=== PATIENT | female | born 1970 | race Hispanic/Latino ===

== ENCOUNTER 2023-01-13 06:52 | Emergency (ER) | payer SELFPAY ==
[2023-01-13 07:45] LABS: Specific Gravity 1.017 (1.005-1.030); Urine Bacteria 20-50 /HPF (<20); Urine Bilirubin NEGATIVE (Negative); Urine Blood Trace (Negative); Urine Clarity Clear (Clear); Urine Color Light-Yellow (Yellow); Urine Glucose NEGATIVE (Negative); Urine Mucus Slight /HPF (None Seen); Urine Protein NEGATIVE (Negative); Urine RBC <5 /HPF (None Seen); Urine Urobilinogen Normal (Normal)
[2023-01-13 07:48] LABS: Absolute Lymphocytes (CBC) 1.7 K/uL (0.7-4.9); Hematocrit 42.8 % (36.0-45.0); Lymphocytes % 28.5 % (15.3-44.8); MCV 86.6 fL (80-100); MPV 8.1 fL (7.6-11.3); RBC Red Blood Cell Count 4.94 M/uL (3.86-4.86)
[2023-01-13 08:15] LABS: Albumin 3.7 g/dL (3.4-5.0); Bilirubin Total 0.5 mg/dL (0.2-1.0); Potassium 3.5 mEq/L (3.5-5.1); Protein, Total 8.2 g/dL (6.4-8.2)
--- NOTE | 2023-01-13 09:04 | RAD REPORT ---
EXAM DESCRIPTION: CTAbdomen Pelvis W Contrast - 01/13/2023 8:31 am CLINICAL HISTORY: Abdominal pain. ABD PAIN COMPARISON: No comparisons TECHNIQUE: Biphasic CT imaging of the abdomen and pelvis was performed with 100 ml non-ionic IV cont rast. All CT scans are performed using dose optimization technique as appropriate and may include automated exposure control or mA/KV adjustment according to patient size. FINDINGS: The lung bases are clear.Cholecystectomy. The liver shows mild fatty infiltration. Spleen, pancreas, adrenal glands and kidneys are within norm al limits. No bowel obstruction, free air, free fluid or abscess. Scattered colonic diverticulosis is present wi th moderate stool. The appendix is normal. There is a ventral hernia at the level of the umbilicus wh ich is moderate in size and contains fat. Fascia defect is 2 cm. No evidence of significant lymphaden opathy. No suspicious bony findings. IMPRESSION: Fatty liver. Moderate fat containing periumbilical ventral hernia. No incarceration or bowel involvement.
--- NOTE | 2023-01-13 09:50 | EDPHYS ---
Physician Documentation [facility] Name: Radha Toledo Age: 52 yrs Sex: Female : 1970 Arrival Date: 01/13/2023 Time: 06:52 Bed 12 Private MD: ED Physician Gordon Douglas HPI: 01/13 10:54 This 52 yrs old Female presents to ER via Ambulatory with complaints of ms3 Urinary Problem, Pelvic Pain, Fever. 10:54 52-year-old female with past medical history of uterine cancer presents for 1 week of ms3 lower abdominal pain. Patient denies vaginal discharge. Patient states the discomfort is 4/10. Patient states the pain is better with taking Tylenol. Patient denies aggravating factors. Patient endorses fever up to 102, chills. Patient denies nausea or vomiting.. Historical: - Allergies: 07:11 Lidocaine; aa5 07:11 PENICILLINS; aa5 07:11 Aspirin; aa5 - PMHx: 07:12 Uterine Cancer; aa5 - PSHx: 07:12 Total Hysterectomy (uterine cancer); aa5 - Immunization history:: Adult Immunizations unknown. - Social history:: Smoking status: Patient denies any tobacco usage or history of. ROS: 10:54 Respiratory: Negative for shortness of breath, cough, wheezing, and pleuritic chest ms3 pain. 10:54 MS/Extremity: Negative for injury and deformity, Skin: Negative for injury, rash, and discoloration. 10:54 Constitutional: Positive for chills, fever. 10:54 Abdomen/GI: Positive for abdominal pain. 10:54 All other systems are negative. Exam: 10:54 Constitutional: This is a well developed, well nourished patient who is awake, alert, ms3 and in no acute distress. Head/Face: Normocephalic, atraumatic. Eyes: Pupils equal round and reactive to light, extra-ocular motions intact. Lids and lashes normal. Conjunctiva and sclera are non-icteric and not injected. Periorbital areas with no swelling, redness, or edema. Neck: Trachea midline, no cervical lymphadenopathy. Supple, full range of motion without nuchal rigidity, or vertebral point tenderness. No Meningismus. Chest/axilla: Normal chest wall appearance and motion. Nontender with no deformity. Cardiovascular: Regular rate and rhythm with a normal S1 and S2. No gallops, murmurs, or rubs. Normal PMI, no JVD. No pulse deficits. Respiratory: Lungs have equal breath sounds bilaterally, clear to auscultation and percussion. No rales, rhonchi or wheezes noted. No increased work of breathing, no retractions or nasal flaring. 10:54 Abdomen/GI: Inspection: abdomen appears normal, Bowel sounds: normal, Palpation: moderate abdominal tenderness, in the suprapubic area. Vital Signs: 07:12 BP 141 / 94; Pulse 82; Resp 16 S; Temp 97.5(TE); Pulse Ox 100% on R/A; Weight 86.18 kg aa5 (R); Height 5 ft. 3 in. (R); Pain 10; 07:12 Body Mass Index 33.66 (86.18 kg, 160.02 cm) aa5 07:12 Pain Scale: Adult aa5 MDM: 07:15 Patient medically screened. ms3 10:54 Differential diagnosis: UTI, Metastasis versus Pyelonephritis. ms3 12:07 Data reviewed: vital signs, nurses notes, lab test result(s), radiologic studies, and ms3 as a result, I will discharge patient. I considered the following discharge prescriptions or medication management in the emergency department I discussed and recommended Over The Counter medications. Care significantly affected by the following chronic conditions: Cancer. Care significantly affected by the following Social Determinants of Health:. Counseling: I had a detailed discussion with the patient and/or guardian regarding: the historical points, exam findings, and any diagnostic results supporting the discharge/admit diagnosis, lab results, radiology results, the need for outpatient follow up, to return to the emergency department if symptoms worsen or persist or if there are any questions or concerns that arise at home. Response to treatment: the patient's symptoms have markedly improved after treatment, and as a result, I will discharge patient. Special discussion: I discussed with the patient/guardian in detail that at this point there is no indication for admission to the hospital. It is understood, however, that if the symptoms persist or worsen the patient needs to return immediately for re-evaluation. 01/13 07:15 Order name: CBC with Diff; Complete Time: 08:18 ms3 01/13 07:15 Order name: CMP; Complete Time: 08:18 ms3 01/13 07:15 Order name: Urinalysis w/ reflexes; Complete Time: 07:49 ms3 01/13 07:50 Order name: CT Abd/Pelvis - IV Contrast Only; Complete Time: 09:39 ms3 01/13 07:50 Order name: IV Saline Lock; Complete Time: 08:14 ms3 01/13 07:50 Order name: Labs collected and sent; Complete Time: 08:14 ms3 Administered Medications: No medications were administered Disposition Summary: 01/13/23 09:50 Discharge Ordered Location: Home ms3 Condition: Stable ms3 Diagnosis - Lower abdominal pain, unspecified ms3 - UTI/ Urinary tract infection, site not specified ms3 Followup: ms3 - With: Private Physician - When: 2 - 3 days - Reason: Recheck today's complaints Discharge Instructions: - Discharge Summary Sheet ms3 - Abdominal Pain, Adult ms3 Forms: - Work release form iw - Medication Reconciliation Form ms3 - Thank You Letter ms3 - Antibiotic Education ms3 - Prescription Opioid Use ms3 Prescriptions: - Macrobid 100 mg Oral Capsule - take 1 capsule by ORAL route every 12 hours for 10 days; 20 capsule; Refills: ms3 0, Product Selection Permitted Signatures: Dispatcher [employer] Meche Ku RN RN aa5 Gordon Douglas DO DO ms3
--- NOTE | 2023-01-13 09:50 | ER ---
Nurse's Notes [facility] [place], [place] Name: Radha Toledo Age: 52 yrs Sex: Female : 1970 Arrival Date: 01/13/2023 Time: 06:52 Bed 12 Private MD: Diagnosis: Lower abdominal pain, unspecified;UTI/ Urinary tract infection, site not specified Presentation: 01/13 07:12 Coronavirus screen: fever. Ebola Screen: Patient denies travel to an Ebola-affected [facility] area in the 21 days before illness onset. Initial Sepsis Screen: Does the patient meet any 2 criteria? Temp <36.0*C (96.8*F)) or > 38.3*C (100.9*F). Does the patient have a suspected source of infection? No. Patient's initial sepsis screen is negative. Risk Assessment: Do you want to hurt yourself or someone else? Patient reports no desire to harm self or others. Onset of symptoms was January 2023. 07:12 Acuity: ADRIÁN 3 aa5 07:12 Method Of Arrival: Ambulatory aa5 07:12 Chief complaint: Patient states: lower abd/pelvic pain, burning with urination, and aa5 fever up to 102.0*F. Triage Assessment: 10:09 General: Appears in no apparent distress. iw Historical: - Allergies: 07:11 Lidocaine; aa5 07:11 PENICILLINS; aa5 07:11 Aspirin; aa5 - PMHx: 07:12 Uterine Cancer; aa5 - PSHx: 07:12 Total Hysterectomy (uterine cancer); aa5 - Immunization history:: Adult Immunizations unknown. - Social history:: Smoking status: Patient denies any tobacco usage or history of. Screenin:08 [facility] ED Fall Risk Assessment (Adult) History of falling in the last 3 months, iw including since admission. Abuse screen: Denies threats or abuse. Denies injuries from another. Nutritional screening: No deficits noted. Tuberculosis screening: No symptoms or risk factors identified. Assessment: 07:28 Reassessment: Patient is alert, oriented x 3, equal unlabored respirations, skin aa5 warm/dry/pink. Pt sitting up in bed, notified of wait time for lab results. . Vital Signs: 07:12 BP 141 / 94; Pulse 82; Resp 16 S; Temp 97.5(TE); Pulse Ox 100% on R/A; Weight 86.18 kg aa5 (R); Height 5 ft. 3 in. (R); Pain 4/10; 07:12 Body Mass Index 33.66 (86.18 kg, 160.02 cm) aa5 07:12 Pain Scale: Adult aa5 ED Course: 06:55 Patient arrived in ED. rg4 07:02 Gordon Douglas DO is Attending Physician. ms3 07:11 Arm band placed on. aa5 07:12 Triage completed. aa5 07:28 Initial lab(s) drawn, by me, sent to lab. Inserted saline lock: 20 gauge in right aa5 antecubital area, using aseptic technique. Blood collected. 08:33 CT Abd/Pelvis - IV Contrast Only In Process Unspecified. EDMS 09:53 Filomena Harris, RN is Primary Nurse. iw 10:09 Patient has correct armband on for positive identification. iw 10:09 IV discontinued, intact, bleeding controlled, No redness/swelling at site. Pressure iw dressing applied. 10:09 No provider procedures requiring assistance completed. iw Administered Medications: No medications were administered Medication: 10:08 VIS not applicable for this client. iw Outcome: 09:50 Discharge ordered by MD. ms3 10:08 Discharged to home ambulatory. iw 10:08 Condition: good 10:08 Discharge instructions given to patient, Instructed on discharge instructions, follow up and referral plans. Demonstrated understanding of instructions, follow-up care, medications, Prescriptions given X 1. 10:09 Patient left the ED. iw Signatures: Dispatcher [employer] EDMT Filomena Harris RN RN iw Meche Cuevas RN RN aa5 Garcia, Rubi rg4 Gordon Douglas DO DO ms3 Corrections: (The following items were deleted from the chart) 07:14 07:12 Pulse 82bpm; Resp 16bpm; Spontaneous; Pulse Ox 100% RA; Temp 97.5F Temporal; Pain aa5 410, Adult; aa5 07:15 07:12 Pulse 82bpm; Resp 16bpm; Spontaneous; Pulse Ox 100% RA; Temp 97.5F Temporal; aa5 86.18 kg Reported; Height 5 ft. 3 in. Reported; BMI: 33.6; Pain 4/10, Adult; aa5
[2023-01-13 10:29] VITALS: BP 141/94; TEMP 97.5; O2SAT 100
== END 2023-01-13 10:09 | disposition home or self-care (01) ==
LOC: ER 06:52
DX: N39.0 Urinary tract infection, site not specified (principal)
CPT/HCPCS: 36415; 74177; 80053; 81001; 85025; 99284; Q9967

== ENCOUNTER 2023-05-08 20:08 | Emergency (ER) | payer SELFPAY ==
--- NOTE | 2023-05-08 21:58 | RAD REPORT ---
EXAM DESCRIPTION: RAD - Chest Single View - 05/08/2023 9:46 pm CLINICAL HISTORY: COUGH Chest pain. COMPARISON: No comparisons FINDINGS: Portable technique limits examination quality. The lungs are grossly clear. The heart is normal in size. No displaced fractures. IMPRESSION: No acute intrathoracic process suspected.
[2023-05-08 22:02] LABS: Specific Gravity 1.023 (1.005-1.030); Urine Bacteria None Seen /HPF (<20); Urine Bilirubin NEGATIVE (Negative); Urine Blood Negative (Negative); Urine Clarity Extremely Turbid (Clear); Urine Color Light-Yellow (Yellow); Urine Glucose NEGATIVE (Negative); Urine Mucus Slight /HPF (None Seen); Urine Protein NEGATIVE (Negative); Urine Urobilinogen Normal (Normal); Urine pH 6.5 (5.0-7.0)
[2023-05-08 22:07] LABS: Absolute Lymphocytes (CBC) 2.7 K/uL (0.7-4.9); Hematocrit 42.2 % (36.0-45.0); MCV 86.6 fL (80-100); MPV 7.7 fL (7.6-11.3); Platelets 281 thou/uL (152-406); RBC Red Blood Cell Count 4.87 M/uL (3.86-4.86)
[2023-05-08 22:12] LABS: Protime INR 1.03
[2023-05-08] MEDS ORDERED: NA CHLORIDE 0.9% 1,000 ML ONE (22:14)
[2023-05-08] MEDS ORDERED: NA CHLORIDE 0.9% 500 ML ONE (22:14)
[2023-05-08 22:19] LABS: SARS-CoV-2 Antigen Rapid Res Negative (Negative)
[2023-05-08 22:26] LABS: ALT/SGPT 44 U/L (13-56); AST/SGOT 27 U/L (15-37); Albumin 3.7 g/dL (3.4-5.0); Alkaline Phosphatase 118 U/L (45-117); BUN Blood Urea Nitrogen 13 mg/dL (7-18); Bicarbonate 32 mEq/L (21-32); Bilirubin Total 0.2 mg/dL (0.2-1.0); Glomerular Filtration Rate 77 ml/min (=/>90); Glucose Level 87 mg/dL (74-106); Magnesium 2.1 mg/dL (1.6-2.4); NT PRO-BNP 33 pg/mL (<125); Potassium 3.5 mEq/L (3.5-5.1); Protein, Total 7.8 g/dL (6.4-8.2); Sodium Level 139 mEq/L (136-145); Troponin High Sensitivity 4.9 pg/mL (<58.9)
[2023-05-08 22:28] LABS: Bilirubin Direct < 0.1 mg/dL (0-0.2); Bilirubin Indirect, Calculated ND mg/dL (0.2-0.8)
--- NOTE | 2023-05-08 23:53 | ER ---
Nurse's Notes [facility] Name: Radha Toledo Age: 52 yrs Sex: Female : 1970 Arrival Date: 05/08/2023 Time: 20:08 Bed 18 Private MD: Diagnosis: Acute upper respiratory infection, unspecified;Fever, unspecified;Cough Presentation: 05/08 20:53 Chief complaint: Patient states: I have been having shortness of breath when I take a vc1 deep breath I have pain in my back and my nose is stuffed, it has been like this for 3 days. Coronavirus screen: Vaccine status: Patient reports receiving the 2nd dose of the covid vaccine. plus booster; [place] Client denies travel out of the [place] in the last 14 days. congestion, cough unrelated to allergies, runny nose, shortness of breath, Client presents with at least one sign or symptom that may indicate coronavirus-19. Ebola Screen: Patient negative for fever greater than or equal to 101.5 degrees Fahrenheit, and additional compatible Ebola Virus Disease symptoms Patient denies exposure to infectious person. Patient denies travel to an Ebola-affected area in the 21 days before illness onset. No symptoms or risks identified at this time. Initial Sepsis Screen: Does the patient meet any 2 criteria? No. Patient's initial sepsis screen is negative. Does the patient have a suspected source of infection? No. Patient's initial sepsis screen is negative. Risk Assessment: Do you want to hurt yourself or someone else? Patient reports no desire to harm self or others. Onset of symptoms was May 05, 2023. 20:53 Method Of Arrival: Ambulatory vc1 20:53 Acuity: ADRIÁN 3 vc1 Triage Assessment: 20:57 General: Appears in no apparent distress. uncomfortable, ill, Behavior is calm, vc1 cooperative, appropriate for age. Pain: Complains of pain in right trapezius and right scapular area Pain does not radiate. Pain currently is 4 out of 10 on a pain scale. Aggravated by deep breath. EENT: Reports nasal congestion. Neuro: No deficits noted. Cardiovascular: No deficits noted. Respiratory: Reports shortness of breath Airway is patent Respiratory effort is even, unlabored, Respiratory pattern is regular, symmetrical, Onset: The symptoms/episode began/occurred 3 days, the patient has mild shortness of breath. GI: No deficits noted. No signs and/or symptoms were reported involving the gastrointestinal system. : No deficits noted. No signs and/or symptoms were reported regarding the genitourinary system. Derm: No deficits noted. No signs and/or symptoms reported regarding the dermatologic system. Musculoskeletal: No deficits noted. No signs and/or symptoms reported regarding the musculoskeletal system. 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 - Social history:: Smoking status: Patient denies any tobacco usage or history of. - Family history:: not pertinent. Screenin:10 [facility] ED Fall Risk Assessment (Adult) History of falling in the last 3 months, lg3 including since admission No falls in past 3 months (0 pts). Abuse screen: Denies threats or abuse. Denies injuries from another. Nutritional screening: No deficits noted. Tuberculosis screening: No symptoms or risk factors identified. Assessment: 21:10 General: Appears in no apparent distress. comfortable, Behavior is calm, cooperative. lg3 Pain: Complains of pain in back. Neuro: No deficits noted. Webber Agitation-Sedation Scale (RASS): 0 - Alert and Calm Level of Consciousness is awake, alert, obeys commands, Oriented to person, place, time, situation, Reports headache weakness. Cardiovascular: No deficits noted. Denies chest pain, Rhythm is sinus rhythm. Respiratory: Reports shortness of breath cough that is pain with cough Airway is patent Respiratory effort is even, unlabored, Respiratory pattern is regular, symmetrical, Breath sounds are clear bilaterally. GI: No deficits noted. No signs and/or symptoms were reported involving the gastrointestinal system. Abdomen is round non-distended. : No deficits noted. No signs and/or symptoms were reported regarding the genitourinary system. EENT: No deficits noted. Reports nasal congestion nasal discharge. Derm: No deficits noted. No signs and/or symptoms reported regarding the dermatologic system. Skin is intact, is healthy with good turgor, Skin is dry, Skin is normal, Skin temperature is warm. Musculoskeletal: No deficits noted. Circulation, motion, and sensation intact. Range of motion: intact in all extremities. 23:42 Reassessment: Patient appears in no apparent distress at this time. No changes from lg3 previously documented assessment. Patient and/or family updated on plan of care and expected duration. Pain level reassessed. Patient is alert, oriented x 3, equal unlabored respirations, skin warm/dry/pink. Vital Signs: 20:53 BP 138 / 94; Pulse 86; Resp 18; Temp 98.1; Pulse Ox 100% ; Weight 86.18 kg; Height 5 vc1 ft. 3 in. ; 22:20 BP 130 / 85; Pulse 79; Resp 13 S; Pulse Ox 99% on R/A; lg3 23:42 BP 116 / 72; Pulse 84; Resp 15 S; Pulse Ox 99% on R/A; lg3 20:53 Body Mass Index 33.66 (86.18 kg, 160.02 cm) vc1 ED Course: 20:10 Patient arrived in ED. mr 20:56 Triage completed. vc1 20:56 Arm band placed on left wrist. vc1 21:10 Patient has correct armband on for positive identification. Placed in gown. Bed in low lg3 position. Call light in reach. Side rails up X 1. Client placed on continuous cardiac and pulse oximetry monitoring. NIBP monitoring applied. c4 planner on. Door closed. Noise minimized. Warm blanket given. 21:10 Patient maintains SpO2 saturation greater than 95% on room air. lg3 21:17 Zacarias Osborn MD is Attending Physician. carl 21:47 XRAY Chest (1 view) In Process Unspecified. EDMS 21:54 Urinalysis w/ reflexes Sent. pf1 21:54 SARS RAPID Sent. pf1 21:54 Flu Sent. pf1 22:00 Inserted saline lock: 22 gauge in right antecubital area, using aseptic technique. lg3 Blood collected. 22:16 Ayaka Ivy, RN is Primary Nurse. lg3 05/09 00:16 No provider procedures requiring assistance completed. IV discontinued, intact, lg3 bleeding controlled, No redness/swelling at site. Pressure dressing applied. Administered Medications: 05/08 22:16 Drug: NS 0.9% IV 1000 ml Route: IV; Rate: 125 ml/hr; Site: right antecubital; lg3 05/09 00:17 Follow up: IV Status: Completed infusion; IV Intake: 200ml lg3 05/08 22:17 Drug: NS 0.9% IV 500 ml Route: IV; Rate: bolus; Site: right antecubital; lg3 05/09 00:17 Follow up: Response: No adverse reaction; IV Status: Completed infusion; IV Intake: lg3 500ml 05/08 23:50 Drug: predniSONE PO 60 mg Route: PO; lg3 05/09 00:16 Follow up: Response: No adverse reaction lg3 05/08 23:50 Drug: LevOfloxacin PO 750 mg Route: PO; lg3 05/09 00:16 Follow up: Response: No adverse reaction lg3 Medication: 00:18 VIS not applicable for this client. lg3 Intake: 00:17 IV: 500ml; Total: 500ml. lg3 00:17 IV: 200ml; Total: 700ml. lg3 Outcome: 05/08 23:52 Discharge ordered by . carl 05/09 00:17 Discharged to home lg3 Condition: stable Discharge instructions given to patient, Instructed on discharge instructions, follow up and referral plans. medication usage, Demonstrated understanding of instructions, follow-up care, medications, Prescriptions given X 4. 00:18 Patient left the ED. lg3 Signatures: Dispatcher [employer] EDMS Zacarias Osborn MD MD cha Rivera, Gabrielle mr IvyAyaka RN RN lg3 Kimberlee Mitchell RN RN vc1 Niru Byrne RN RN pf1 Corrections: (The following items were deleted from the chart) 05/08 22:20 21:10 BP 130 / 85; Pulse 79bpm; Resp 13bpm; Spontaneous; Pulse Ox 99% RA; lg3 lg3
--- NOTE | 2023-05-08 23:53 | EDPHYS ---
Physician Documentation [facility] Name: Radha Toledo Age: 52 yrs Sex: Female : 1970 Arrival Date: 05/08/2023 Time: 20:08 Bed 18 Private MD: ED Physician Zacarias Osborn HPI: 05/08 23:44 This 52 yrs old Female presents to ER via Ambulatory with complaints of carl Shortness Of Breath, Cough, Congestion. 23:44 The patient has shortness of breath with light activity. Onset: The symptoms/episode carl began/occurred 2 day(s) ago. Duration: The symptoms are continuous, and are steadily getting worse. The patient's shortness of breath is aggravated by coughing, is alleviated by sitting up. Associated signs and symptoms: Pertinent positives: non-productive cough, fever. Severity of symptoms: At their worst the symptoms were mild moderate in the emergency department the symptoms are unchanged. The patient has experienced similar episodes in the past, a few times. MANAGER CODE: 20:56 LMP N/A - Hysterectomy vc1 Historical: - Allergies: 20:56 Aspirin; vc1 20:56 Lidocaine; vc1 20:56 PENICILLINS; vc1 - Home Meds: 20:56 None [Active]; vc1 - PMHx: 20:56 uterine cancer; vc1 - PSHx: 20:56 Total Hysterectomy (uterine cancer); vc1 - Immunization history:: Client reports receiving the 2nd dose of the Covid vaccine. - Social history:: Smoking status: Patient denies any tobacco usage or history of. - Family history:: not pertinent. ROS: 23:44 Constitutional: Negative for fever, chills, and weight loss, Eyes: Negative for injury, carl pain, redness, and discharge, ENT: Negative for injury, pain, and discharge, Neck: Negative for injury, pain, and swelling, Cardiovascular: Negative for chest pain, palpitations, and edema, Abdomen/GI: Negative for abdominal pain, nausea, vomiting, diarrhea, and constipation, Back: Negative for injury and pain, : Negative for injury, bleeding, discharge, and swelling, MS/Extremity: Negative for injury and deformity, Skin: Negative for injury, rash, and discoloration, Neuro: Negative for headache, weakness, numbness, tingling, and seizure, Psych: Negative for depression, anxiety, suicide ideation, homicidal ideation, and hallucinations, Allergy/Immunology: Negative for hives, rash, and allergies, Endocrine: Negative for neck swelling, polydipsia, polyuria, polyphagia, and marked weight changes, Hematologic/Lymphatic: Negative for swollen nodes, abnormal bleeding, and unusual bruising. 23:44 Respiratory: Positive for cough, "sounds productive". Exam: 23:44 Constitutional: This is a well developed, well nourished patient who is awake, alert, carl and in no acute distress. Head/Face: Normocephalic, atraumatic. Eyes: Pupils equal round and reactive to light, extra-ocular motions intact. Lids and lashes normal. Conjunctiva and sclera are non-icteric and not injected. Cornea within normal limits. Periorbital areas with no swelling, redness, or edema. Neck: Trachea midline, no thyromegaly or masses palpated, and no cervical lymphadenopathy. Supple, full range of motion without nuchal rigidity, or vertebral point tenderness. No Meningismus. Chest/axilla: Normal chest wall appearance and motion. Nontender with no deformity. No lesions are appreciated. Cardiovascular: Regular rate and rhythm with a normal S1 and S2. No gallops, murmurs, or rubs. Normal PMI, no JVD. No pulse deficits. Respiratory: Lungs have equal breath sounds bilaterally, clear to auscultation and percussion. No rales, rhonchi or wheezes noted. No increased work of breathing, no retractions or nasal flaring. Abdomen/GI: Soft, non-tender, with normal bowel sounds. No distension or tympany. No guarding or rebound. No evidence of tenderness throughout. Back: No spinal tenderness. No costovertebral tenderness. Full range of motion. Skin: Warm, dry with normal turgor. Normal color with no rashes, no lesions, and no evidence of cellulitis. MS/ Extremity: Pulses equal, no cyanosis. Neurovascular intact. Full, normal range of motion. Neuro: Awake and alert, GCS 15, oriented to person, place, time, and situation. Cranial nerves II-XII grossly intact. Motor strength 5/5 in all extremities. Sensory grossly intact. Cerebellar exam normal. Normal gait. Psych: Awake, alert, with orientation to person, place and time. Behavior, mood, and affect are within normal limits. 23:44 ENT: Nose: Nasal mucosa: normal, nasal drainage, and is seen coming from both nares, Posterior pharynx: no acute changes, Airway: normal, no evidence of obstruction, Tonsils: are normal in appearance, Uvula: normal, midline, non-edematous, no erythema, swelling, is not appreciated, erythema, is not appreciated. Vital Signs: 20:53 BP 138 / 94; Pulse 86; Resp 18; Temp 98.1; Pulse Ox 100% ; Weight 86.18 kg; Height 5 vc1 ft. 3 in. ; 22:20 BP 130 / 85; Pulse 79; Resp 13 S; Pulse Ox 99% on R/A; lg3 23:42 BP 116 / 72; Pulse 84; Resp 15 S; Pulse Ox 99% on R/A; lg3 20:53 Body Mass Index 33.66 (86.18 kg, 160.02 cm) vc1 MDM: 21:28 Patient medically screened. [facility] 23:51 Differential diagnosis: pneumonia. Antibiotic administration: The patient is discharged [facility] and will get outpatient antibiotics, Levaquin. Immunization status: Influenza vaccine: within last 5 years. Data reviewed: vital signs, nurses notes, lab test result(s), EKG, radiologic studies, plain films. Consideration of Admission/Observation Escalation of care including admission/observation considered. I considered the following discharge prescriptions or medication management in the emergency department Medications were administered in the Emergency Department. See MAR. Independent interpretation of the following test(s) in the Emergency Department EKG: See my EKG interpretation above. 05/08 21:19 Order name: Basic Metabolic Panel; Complete Time: 22:33 [facility] 05/08 21:19 Order name: CBC with Diff; Complete Time: 22:33 [facility] 05/08 21:19 Order name: LFT's; Complete Time: 22:33 [facility] 05/08 21:19 Order name: Magnesium; Complete Time: 22:33 [facility] 05/08 21:19 Order name: NT PRO-BNP; Complete Time: 22:33 [facility] 05/08 21:19 Order name: PT-INR; Complete Time: 22:33 [facility] 05/08 21:19 Order name: Troponin HS; Complete Time: 22:33 [facility] 05/08 21:19 Order name: Flu; Complete Time: 23:43 [facility] 05/08 21:19 Order name: SARS RAPID; Complete Time: 22:33 [facility] 05/08 21:20 Order name: Urinalysis w/ reflexes; Complete Time: 22:33 [facility] 05/08 21:19 Order name: XRAY Chest (1 view); Complete Time: 22:33 [facility] 05/08 21:19 Order name: EKG; Complete Time: 21:20 [facility] 05/08 21:19 Order name: Cardiac monitoring; Complete Time: 22:00 [facility] 05/08 21:19 Order name: EKG - Nurse/Tech; Complete Time: 21:54 [facility] 05/08 21:19 Order name: IV Saline Lock; Complete Time: 22:00 [facility] 05/08 21:19 Order name: Labs collected and sent; Complete Time: 22:00 [facility] 05/08 21:19 Order name: O2 Per Protocol; Complete Time: 22:00 [facility] 05/08 21:19 Order name: O2 Sat Monitoring; Complete Time: 22:01 [facility] Administered Medications: 22:16 Drug: NS 0.9% IV 1000 ml Route: IV; Rate: 125 ml/hr; Site: right antecubital; [facility] 05/09 00:17 Follow up: IV Status: Completed infusion; IV Intake: 200ml [facility] 05/08 22:17 Drug: NS 0.9% IV 500 ml Route: IV; Rate: bolus; Site: right antecubital; [facility] 05/09 00:17 Follow up: Response: No adverse reaction; IV Status: Completed infusion; IV Intake: lg3 500ml 05/08 23:50 Drug: predniSONE PO 60 mg Route: PO; 3 05/09 00:16 Follow up: Response: No adverse reaction [facility] 05/08 23:50 Drug: LevOfloxacin PO 750 mg Route: PO; 3 05/09 00:16 Follow up: Response: No adverse reaction 3 Disposition Summary: 05/08/23 23:52 Discharge Ordered Location: Home [facility] Problem: new carl Symptoms: have improved carl Condition: Stable carl Diagnosis - Acute upper respiratory infection, unspecified carl - Fever, unspecified carl - Cough carl Followup: carl - With: Private Physician - When: 2 - 3 days - Reason: Recheck today's complaints, Continuance of care, Re-evaluation by your physician Discharge Instructions: - Discharge Summary Sheet carl - Fever, Adult carl - Upper Respiratory Infection, Adult carl - Cool Mist Vaporizer carl - Upper Respiratory Infection, Adult, [id number] carl - Cough, Adult [facility] Forms: - Medication Reconciliation Form [facility] - Thank You Letter carl - Antibiotic Education carl - Prescription Opioid Use carl - Patient Portal Instructions carl - Leadership Thank You Letter carl Prescriptions: - Betzy-D 12 Hour 60-120 mg Oral Tablet Sustained Release 12 hr - take 1 tablet by ORAL route every 12 hours As needed; 20 tablet; Refills: 0, [facility] Product Selection Permitted - Tessalon Perles 100 mg Oral Capsule - take 2 capsule by ORAL route every 8 hours As needed; 40 capsule; Refills: 0, [facility] Product Selection Permitted - Medrol (Meet) 4 mg Oral Tablets, Dose Pack - take 1 tablet by ORAL route as directed - follow package instructions; 1 [facility] packet; Refills: 0, Product Selection Permitted - levofloxacin 750 mg Oral Tablet - take 1 tablet by ORAL route once daily; 6 tablet; Refills: 0, Product Selection [facility] Permitted Signatures: Dispatcher [employer] Zacarias Ramos MD MD cha Gibson, Lacie RN RN lg3 Kimberlee Mitchell RN RN vc1
[2023-05-08] MEDS ORDERED: levoFLOXacin 750 MG TAB ONE (23:58)
[2023-05-08] MEDS ORDERED: predniSONE 20 MG TAB ONE (23:58)
[2023-05-09 00:36] VITALS: TEMP 98.1
[2023-05-09 00:37] VITALS: O2SAT 99
[2023-05-09 00:39] VITALS: BP 116/72
--- NOTE | 2023-05-09 14:37 | EKG ---
Test Date: 2023-05-08 Test Time: 21:51:40 Stain Dipper: LA MEASUREMENT RESULTS: Intervals: Rate: 78 AR: 150 QRSD: 78 QT: 378 QTc: 430 Richards: P: 54 AR: 150 QRS: 57 T: 42 INTERPRETIVE STATEMENTS: Normal sinus rhythm Normal ECG No previous ECG available for comparison Electronically Signed On 05-09-23 14:36:04 CDT by Kenyon Ash
== END 2023-05-09 00:18 | disposition home or self-care (01) ==
LOC: ER 20:08
DX: J06.9 Acute upper respiratory infection, unspecified (principal); R50.9 Fever, unspecified; Z20.822 Contact with and (suspected) exposure to COVID-19
CPT/HCPCS: 36415; 71045; 80048; 80076; 81001; 83735; 83880; 84484; 85025; 85610; 87804; 87811; 93005; 96360; 96361; 99285; J7030; J7040; J7512

== ENCOUNTER → 2023-11-23 | Emergency (ER) | payer OTHER, SELFPAY ==
[~2023-11-23] MED LIST: DIPHENHYDRAMINE 50 MG/ML VIAL ONE; FAMOTIDINE 20 MG/2 ML VIAL IV ONE; METHYLPREDNISOLONE 125 MG INJ ONE
--- OUTSIDE RECORDS SUMMARY | 2023-11-23 17:17 | XMS REPORT | Continuity of Care Document ---
Author Name Unknown Address [address] [place] [address] [address] th[address] Address [address] [facility]. [address] [place] [address] Care Team Providers Care It Risk And Assurance Manager Name Role Phone [facility] Attending Clinician Unavailable Payers Payer Name Policy Type Policy Number Effective Date Expirati on Date [facility] [id number] 2023 00:00:00 Encounters Start Date/Time End Date/Time Encounter Type Admission Type Attending Clinicians Care Facility Care Department Encounter ID Source 2023-12-02 09:00:00 2023-12-02 09:00:00 Outpatient [facility] [id number] Zuleima Dumont
--- NOTE | 2023-11-23 18:45 | RAD REPORT ---
EXAM DESCRIPTION: RADChest Single View11/23/2023 5:36 pm CLINICAL HISTORY: SOB COMPARISON: Chest Single View dated 05/08/2023 TECHNIQUE: Portable AP view of the chest. FINDINGS: The lungs are clear. No pneumothorax or effusion. The cardiomediastinal contours are unre markable. IMPRESSION: No acute cardiopulmonary process.
[2023-11-23 18:51] LABS: Absolute Basophils 0.2 K/uL (0-0.5); Absolute Eosinophils 0.2 K/uL (0-0.5); Absolute Lymphocytes (CBC) 2.7 K/uL (0.7-4.9); Absolute Monocytes 0.7 K/uL (0.1-1.3); Absolute Neutrophil 7.3 K/uL (1.8-8.0); Basophils % 1.5 % (0-1.3); Eosinophils % 2.1 % (0-4.4); Hematocrit 42.8 % (36.0-45.0); Hemoglobin 14.5 g/dL (12.0-15.0); MCHC 33.8 g/dL (32.0-36.0); MCV 85.8 fL (80-100); Monocytes % 6.7 % (3.3-12.3); Neutrophils % 65.7 % (41.7-73.7); Nucleated Red Blood Cells % 0.1 % (0-0); Platelets 327 thou/uL (152-406); RBC Red Blood Cell Count 4.99 M/uL (3.86-4.86); Red Cell Distribution Width 13.1 % (12.1-15.2)
[2023-11-23 19:02] LABS: SARS-CoV-2 Antigen CONTROL BLUE LINE VIS/BG OK; SARS-CoV-2 Antigen Rapid Res Negative (Negative)
[2023-11-23 19:13] LABS: Albumin 3.7 g/dL (3.4-5.0); Albumin/Globulin Ratio 0.9 (1.1-1.8); Anion Gap 9.7 mEq/L (5.0-15.0); Bilirubin Direct 0.1 mg/dL (0-0.2); Bilirubin Indirect, Calculated 0.3 mg/dL (0.2-0.8); Bilirubin Total 0.4 mg/dL (0.2-1.0); Globulin 4.3 g/dL (2.3-3.5); Magnesium 2.1 mg/dL (1.6-2.4); Potassium 3.7 mEq/L (3.5-5.1); Troponin High Sensitivity 3.7 pg/mL (<58.9)
[2023-11-23 19:22] LABS: Monoscreen POS (NEG)
[2023-11-23 19:31] LABS: Specific Gravity 1.019 (1.005-1.030); Sqamous Epithelial <5 /HPF (None Seen); Urine Bacteria None Seen /HPF (<20); Urine Bilirubin NEGATIVE (Negative); Urine Blood Negative (Negative); Urine Clarity Turbid (Clear); Urine Color Light-Yellow (Yellow); Urine Culture Reflex Order NOT NEEDED; Urine Glucose NEGATIVE (Negative); Urine Ketones NEGATIVE (Negative); Urine Micro Reflex YN NO BILL MICROSCOPIC; Urine Mucus Slight /HPF (None Seen); Urine Nitrite NEGATIVE (Negative); Urine Protein NEGATIVE (Negative); Urine RBC <5 /HPF (None Seen); Urine Urobilinogen Normal (Normal); Urine WBC <5 /HPF (<5); Urine pH 6.5 (5.0-7.0)
--- NOTE | 2023-11-23 22:48 | RAD REPORT ---
EXAM DESCRIPTION: CT - Soft Tissue Neck W/Contr CLINICAL HISTORY: SWELLING COMPARISON: Chest For Pe Angio dated 11/23/2023 TECHNIQUE: Thin axial CT images of the neck, performed following intravenous administration of 95 m L Isovue- 370. Multiplanar reformats were generated and reviewed. All CT scans are performed using dose optimization technique as appropriate and may include automated exposure control or mA/KV adjustment according to patient size. FINDINGS: Mild asymmetric enlargement of the left palatine tonsil. No peritonsillar edema or abnorma l fluid collections. Mild prominence of the lingual tonsils as well. Nasopharyngeal tissues are normal in appearance. Fossa Rosenmller are normal. Parapharyngeal fat triangles are symmetric. Tongue base structures are normal. Epiglottis and aryepiglottic folds are normal. Piriform sinuses are well aerated. The vocal cords are normal in appearance. No suspicious adenopathy. Salivary glands are normal in appearance. Upper lung saldivar are clear. Included intracranial contents are unremarkable. IMPRESSION: Mildly asymmetric enlargement of the left palatine tonsil, likely reactive. No peritonsi llar edema or abnormal fluid collections. No other acute abnormality. No suspicious mucosal mass or adenopathy.
--- NOTE | 2023-11-23 22:51 | RAD REPORT ---
EXAM DESCRIPTION: CT - Chest For Pe Angio - 11/23/2023 9:47 pm CLINICAL HISTORY: SOB COMPARISON: No comparisons TECHNIQUE: Thin axial CT images of the chest were obtained following administration of 90 mL Isovue 370 IV contrast. Multiplanar reconstructions, and maximum intensity projection reconstructions were g enerated and reviewed. Exam utilizes a protocol for optimal evaluation of pulmonary arterial tree. All CT scans are performed using dose optimization technique as appropriate and may include automated exposure control or mA/KV adjustment according to patient size. FINDINGS: Breathing motion artifact limits evaluation. Pulmonary arteries are normal. No emboli or other suspicious finding. No acute or significant aorta f indings. No mass or infiltrate in the lung parenchyma. No pleural thickening or pleural effusion. No pneumotho rax. No abnormal mediastinal or hilar masses or lymphadenopathy seen. No chest wall mass or abnormal axill iary lymphadenopathy. Status post cholecystectomy. IMPRESSION: No evidence of acute central pulmonary emboli. Negative CT scan of the chest for other significant findings.
--- NOTE | 2023-11-23 23:16 | ER ---
Nurse's Notes [facility] Name: Radha Toledo Age: 53 yrs Sex: Female : 1970 Arrival Date: 11/23/2023 Time: 17:14 Bed 9 Private MD: Diagnosis: Enlarged lymph nodes, unspecified-cervical;Shortness of breath;Infectious mononucleosis, unspecified without complication Presentation: 11/22 17:20 Chief complaint: Patient states: Swollen, painful lymph nodes on throat, SOB x 2 weeks. ph Coronavirus screen: Vaccine status: Patient reports receiving the 2nd dose of the covid vaccine. Ebola Screen: No symptoms or risks identified at this time. Initial Sepsis Screen: Does the patient meet any 2 criteria? No. Patient's initial sepsis screen is negative. Does the patient have a suspected source of infection? No. Patient's initial sepsis screen is negative. Risk Assessment: Do you want to hurt yourself or someone else? Patient reports no desire to harm self or others. Onset of symptoms was November 23, 2023. 17:20 Method Of Arrival: Ambulatory 17:20 Acuity: ADRIÁN 3 ph Triage Assessment: 17:25 General: Appears in no apparent distress. Behavior is calm, cooperative, appropriate ph for age. Pain: Complains of pain in neck. Respiratory: Reports shortness of breath on exertion Onset: The symptoms/episode began/occurred 2 weeks ago, the patient has mild shortness of breath. 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 - Social history:: Smoking status: Patient denies any tobacco usage or history of. Screenin:23 [facility] ED Fall Risk Assessment (Adult) History of falling in the last 3 months, tl4 including since admission No falls in past 3 months (0 pts) Confusion or Disorientation No (0 pts) Intoxicated or Sedated No (0 pts) Impaired Gait No (0 pts) Mobility Assist Device Used No (0 pt) Altered Elimination No (0 pt) Score/Fall Risk Level 0 - 2 = Low Risk Oriented to surroundings, Maintained a safe environment, Educated pt \T\ family on fall prevention, incl call for assistance when getting out of bed, Assessed \T\ reinforced patient's understanding of fall precautions, Hourly rounding (assess needs \T\ fall precautionary measures) done, Used ambulatory aids as needed (educated on \T\ assisted with), Used gait belt as appropriate. Abuse screen: Denies threats or abuse. Denies injuries from another. Nutritional screening: No deficits noted. Tuberculosis screening: No symptoms or risk factors identified. Assessment: 18:21 General: Appears in no apparent distress. Behavior is calm, cooperative. Pain: tl4 Complains of pain in neck. Neuro: Level of Consciousness is awake, alert, obeys commands, Oriented to person, place, time, situation, Moves all extremities. Gait is steady, Speech is normal, Facial symmetry appears normal. Cardiovascular: Denies chest pain, Capillary refill < 3 seconds Patient's skin is warm and dry. Rhythm is sinus rhythm. Respiratory: Airway is patent Respiratory effort is even, unlabored, Respiratory pattern is regular, symmetrical, Breath sounds are clear bilaterally. GI: No deficits noted. No signs and/or symptoms were reported involving the gastrointestinal system. : No deficits noted. No signs and/or symptoms were reported regarding the genitourinary system. EENT: Reports difficulty swallowing. Derm: swelling to left side of neck. Musculoskeletal: No deficits noted. No signs and/or symptoms reported regarding the musculoskeletal system. 19:25 Reassessment: No changes from previously documented assessment. Patient and/or family tl4 updated on plan of care and expected duration. Pain level reassessed. Patient is alert, oriented x 3, equal unlabored respirations, skin warm/dry/pink. 20:33 Reassessment: No changes from previously documented assessment. Patient and/or family tl4 updated on plan of care and expected duration. Pain level reassessed. Patient is alert, oriented x 3, equal unlabored respirations, skin warm/dry/pink. 21:22 Reassessment: No changes from previously documented assessment. Patient and/or family tl4 updated on plan of care and expected duration. Pain level reassessed. Patient is alert, oriented x 3, equal unlabored respirations, skin warm/dry/pink. 22:32 Reassessment: No changes from previously documented assessment. Patient and/or family tl4 updated on plan of care and expected duration. Pain level reassessed. Patient is alert, oriented x 3, equal unlabored respirations, skin warm/dry/pink. 23:28 Reassessment: No changes from previously documented assessment. Patient and/or family tl4 updated on plan of care and expected duration. Pain level reassessed. Patient is alert, oriented x 3, equal unlabored respirations, skin warm/dry/pink. Vital Signs: 17:20 BP 142 / 99; Pulse 92; Resp 18; Temp 97.8; Pulse Ox 96% on R/A; Weight 83.91 kg; Height ph 5 ft. 2 in. ; 18:46 BP 127 / 84; Pulse 96; Resp 20; Pulse Ox 98% on R/A; tl4 19:30 BP 117 / 76; Pulse 88; Resp 16; Pulse Ox 99% on R/A; tl4 20:30 BP 111 / 72; Pulse 85; Resp 17; Pulse Ox 99% on R/A; tl4 21:30 BP 124 / 73; Pulse 76; Resp 17; Pulse Ox 99% on R/A; tl4 22:30 BP 127 / 85; Pulse 90; Resp 17; Pulse Ox 99% on R/A; tl4 23:30 BP 119 / 77; Pulse 85; Resp 18; Temp 98.9(O); Pulse Ox 99% on R/A; Pain 6/10; tl4 17:20 Body Mass Index 33.84 (83.91 kg, 157.48 cm) ph 23:30 Pain Scale: Adult tl4 Emmanuel Coma Score: 18:46 Eye Response: spontaneous(4). Motor Response: obeys commands(6). Verbal Response: tl4 oriented(5). Total: 15. ED Course: 17:17 Patient arrived in ED. rg4 17:18 Chaim Jameson MD is Attending Physician. ec2 17:18 Zacarias Vivas PA is PHCP. cp 17:18 Zacarias Vivas PA is PHCP. cp 17:19 Chaim Jameson MD is Attending Physician. cp 17:25 Triage completed. ph 17:25 Arm band placed on Patient placed in an exam room. ph 17:31 Og Zhou, LOLI is Primary Nurse. tl4 17:38 XRAY Chest (1 view) In Process Unspecified. EDMS 18:13 EKG done, by ED staff, reviewed by Zacarias RODRIGUEZ. tl4 18:23 Patient has correct armband on for positive identification. Placed in gown. Bed in low tl4 position. Call light in reach. Side rails up X 1. Provided Education on: ED process. Client placed on continuous cardiac and pulse oximetry monitoring. NIBP monitoring applied. school lunch monitor on. Door closed. Noise minimized. Lights dimmed. Moved to private room. Warm blanket given. 18:45 [place] Screen Profile Sent. tl4 18:45 Strep Sent. tl4 18:45 Influenza Screen (a \T\ B) Sent. tl4 18:45 SARS RAPID Sent. tl4 18:45 Urinalysis W/Microscopic Sent. tl4 18:45 Basic Metabolic Panel Sent. tl4 18:45 CBC with Diff Sent. tl4 18:45 LFT's Sent. tl4 18:45 Magnesium Sent. tl4 18:45 NT PRO-BNP Sent. tl4 18:45 Troponin HS Sent. tl4 18:45 No provider procedures requiring assistance completed. tl4 18:45 Inserted saline lock: 22 gauge in right antecubital area, using aseptic technique. tl4 Blood collected. 18:46 Urine collected: COVID swab sent to lab. Flu and/or RSV swab sent to lab. Strep swab tl4 sent to lab. 21:48 CT Soft Tissue Neck W/contr In Process Unspecified. EDMS 21:49 CT Chest For PE Angio In Process Unspecified. EDMS 23:28 IV discontinued, intact, bleeding controlled, No redness/swelling at site. Pressure tl4 dressing applied. Administered Medications: 21:00 Drug: MethylPrednisoLONE IVP 125 mg IVP once Route: IVP; Site: right antecubital; pf1 22:52 Follow up: Response: No adverse reaction tl4 21:00 Drug: diphenhydrAMINE IVP 25 mg IVP once Route: IVP; Site: right antecubital; pf1 22:52 Follow up: Response: No adverse reaction tl4 21:00 Drug: Famotidine IVP 20 mg IVP once; dilute with 10 mL 0.9% NaCl; give over 2 minutes pf1 Route: IVP; Site: right antecubital; 22:52 Follow up: Response: No adverse reaction tl4 Medication: 18:23 VIS not applicable for this client. tl4 Outcome: 23:16 Discharge ordered by . cp 23:42 Discharged to home ambulatory, tl4 23:42 Condition: stable 23:42 Discharge instructions given to patient, Instructed on discharge instructions, follow up and referral plans. medication usage, Demonstrated understanding of instructions, follow-up care, medications, Prescriptions given X 1, 23:53 Patient left the ED. pf1 Signatures: Dispatcher [employer] Paz Redding RN RN Sangeetha, Zacarias, MICHAEL PA Layla Guadalupe rg4 Niru Byrne RN RN pf1 Chaim Jameson MD MD ec2 Og Zhou RN RN tl4
--- NOTE | 2023-11-23 23:16 | EDPHYS ---
Physician Documentation [facility] Name: Radha Toledo Age: 53 yrs Sex: Female : 1970 Arrival Date: 11/23/2023 Time: 17:14 Bed 9 Private MD: ED Physician Chaim Jameson HPI: 11/22 17:28 This 53 yrs old Female presents to ER via Ambulatory with complaints of Lumps cp on Neck, Breathing Difficulty, Difficulty Swallowing. 17:28 The patient has shortness of breath at rest. cp 17:28 Onset: The symptoms/episode began/occurred 2 week(s) ago. Associated signs and cp symptoms: Pertinent positives: swollen lymph nodes of neck. Severity of symptoms: in the emergency department the symptoms are unchanged despite home interventions. Patient denies cough, denies chest pain, denies fever, denies sore throat. 17:28 The patient's shortness of breath is aggravated by light activity. cp COMB SETTER: 18:47 LMP N/A - Hysterectomy, Not tl4 Historical: - Allergies: 17:25 Aspirin; ph 17:25 Lidocaine; ph 17:25 PENICILLINS; ph - PMHx: 17:25 uterine cancer; ph - PSHx: 17:25 Total Hysterectomy (uterine cancer); ph - Immunization history:: Adult Immunizations unknown. - Social history:: Smoking status: Patient denies any tobacco usage or history of. ROS: 17:30 Constitutional: Negative for body aches, chills, fever, poor PO intake, cp 17:30 Eyes: Negative for injury, pain, redness, and discharge, cp 17:30 ENT: Positive for difficulty swallowing, Negative for drainage from ear(s), ear pain, sore throat, dental pain, difficulty handling secretions, hoarseness, 17:30 Neck: Positive for swelling, tenderness, Negative for injury or acute deformity, stiffness, 17:30 Cardiovascular: Negative for chest pain, edema, palpitations, 17:30 Respiratory: Positive for shortness of breath, at rest. Negative for cough, wheezing, 17:30 Abdomen/GI: Negative for abdominal pain, vomiting, diarrhea, constipation, 17:30 Back: Negative for pain at rest, pain with movement, 17:30 Skin: Negative for rash, 17:30 Neuro: Negative for altered mental status, dizziness, headache, loss of consciousness, syncope, weakness, 17:30 All other systems are negative, Exam: 17:35 Constitutional: The patient appears in no acute distress, alert, awake, comfortable, cp non-diaphoretic, non-toxic, well developed, well nourished, 17:35 Head/Face: Normocephalic, atraumatic. cp 17:35 Eyes: Periorbital structures: appear normal, Pupils: equal, round, and reactive to light and accomodation, Extraocular movements: intact throughout, Conjunctiva: normal, no exudate, no injection, Sclera: no appreciated abnormality, Lids and lashes: appear normal, bilaterally, 17:35 ENT: External ear(s): are unremarkable, Ear canal(s): are normal, clear, TM's: are normal, no evidence of bulging, no erythema, Nose: is normal, Mouth: Lips: moist, Oral mucosa: pink and intact, moist, Posterior pharynx: is normal, airway is patent, no erythema, no exudate, Tonsils: no enlargement, no erythema, no exudate, Uvula: midline, Voice: is normal, 17:35 Neck: ROM/movement: limited range of motion, is not appreciated, Meningeal signs: are not present, nuchal rigidity, is not appreciated, Lymph nodes: lymphadenopathy is appreciated, anterior cervical nodes, 17:35 Chest/axilla: Inspection: normal, Palpation: is normal, no crepitus, no tenderness, 17:35 Cardiovascular: Rate: normal, Rhythm: regular, Edema: is not appreciated, JVD: is not appreciated, 17:35 Respiratory: the patient does not display signs of respiratory distress, Respirations: normal, no use of accessory muscles, no retractions, labored breathing, is not present, Breath sounds: are clear throughout, no decreased breath sounds, no stridor, no wheezing, 17:35 Abdomen/GI: Exam negative for discomfort, distension, guarding, Inspection: abdomen appears normal, 17:35 Back: pain, is absent, ROM is normal, 17:35 Skin: cellulitis, is not appreciated, no rash present. 17:35 Neuro: Orientation: to person, place \T\ time. Mentation: is normal, Motor: moves all fours, strength is normal, Sensation: is normal, 18:04 ECG was reviewed by the Attending Physician. cp Vital Signs: 17:20 BP 142 / 99; Pulse 92; Resp 18; Temp 97.8; Pulse Ox 96% on R/A; Weight 83.91 kg; Height ph 5 ft. 2 in. ; 18:46 BP 127 / 84; Pulse 96; Resp 20; Pulse Ox 98% on R/A; tl4 19:30 BP 117 / 76; Pulse 88; Resp 16; Pulse Ox 99% on R/A; tl4 20:30 BP 111 / 72; Pulse 85; Resp 17; Pulse Ox 99% on R/A; tl4 21:30 BP 124 / 73; Pulse 76; Resp 17; Pulse Ox 99% on R/A; tl4 22:30 BP 127 / 85; Pulse 90; Resp 17; Pulse Ox 99% on R/A; tl4 23:30 BP 119 / 77; Pulse 85; Resp 18; Temp 98.9(O); Pulse Ox 99% on R/A; Pain 6/10; tl4 17:20 Body Mass Index 33.84 (83.91 kg, 157.48 cm) ph 23:30 Pain Scale: Adult tl4 [place] Score: 18:46 Eye Response: spontaneous(4). Motor Response: obeys commands(6). Verbal Response: tl4 oriented(5). Total: 15. MDM: 17:27 Patient medically screened. cp 18:00 Differential diagnosis: Anxiety Reaction Bronchitis CHF exacerbation, Myocardial cp Infarction pneumonia, Pneumothorax pulmonary edema, Pulmonary Embolism Unstable Angina. 23:15 Data reviewed: vital signs, nurses notes, lab test result(s), EKG, radiologic studies, cp CT scan, plain films. 23:15 Antibiotic administration: Not indicated, the patient does not have an appreciated cp infiltrate, the patient has a suspected viral illness. I considered the following discharge prescriptions or medication management in the emergency department Medications were administered in the Emergency Department. See MAR. Care significantly affected by the following chronic conditions: Cancer. Counseling: I had a detailed discussion with the patient and/or guardian regarding the historical points, exam findings, and any diagnostic results supporting the discharge/admit diagnosis, lab results, radiology results, the need for outpatient follow up, a family practitioner, to return to the emergency department if symptoms worsen or persist or if there are any questions or concerns that arise at home. 11/22 17:25 Order name: Basic Metabolic Panel; Complete Time: 19:59 cp /18 19:59 Interpretation: Normal except: GLUC 111. cp /18 17:25 Order name: CBC with Diff; Complete Time: 18:56 cp /18 18:56 Interpretation: Normal except: WBC 11.10; RBC 4.99; BASO% 1.5. cp /18 17:25 Order name: LFT's; Complete Time: 19:59 cp /18 20:00 Interpretation: Normal except: GLOB 4.3; A/G 0.9. cp /18 17:25 Order name: Magnesium; Complete Time: 19:59 cp /18 17:25 Order name: NT PRO-BNP; Complete Time: 19:59 cp /18 22:22 Interpretation: Reviewed. cp / 17:25 Order name: Troponin HS; Complete Time: 19:59 cp /18 17:25 Order name: Urinalysis W/Microscopic; Complete Time: 19:59 cp 11/22 20:00 Interpretation: Normal except: UCLA Turbid; UESTR 250. cp /18 17:25 Order name: SARS RAPID; Complete Time: 19:59 cp /18 17:25 Order name: Influenza Screen (a \T\ B); Complete Time: 19:59 cp 18 17:25 Order name: Strep cp 11/22 17:27 Order name: [place] Screen Profile; Complete Time: 19:59 cp /18 20:00 Interpretation: Abnormal: MONO POS. cp /18 19:02 Order name: Throat Culture EDMS 11/22 17:25 Order name: XRAY Chest (1 view); Complete Time: 18:56 cp /18 20:03 Order name: CT Soft Tissue Neck W/contr; Complete Time: 22:56 cp / 22:57 Interpretation: Report reviewed. cp 11/22 20:03 Order name: CT Chest For PE Angio; Complete Time: 22:56 cp / 22:58 Interpretation: Report reviewed. cp 11/22 17:25 Order name: EKG; Complete Time: 17:26 cp 11/22 17:25 Order name: Cardiac monitoring; Complete Time: 18:13 cp 11/22 17:25 Order name: EKG - Nurse/Tech; Complete Time: 18:13 cp 11/22 17:25 Order name: IV Saline Lock; Complete Time: 18:45 cp 0318 17:25 Order name: Labs collected and sent; Complete Time: 18:45 cp 11/22 17:25 Order name: O2 Per Protocol; Complete Time: 18:13 cp 11/22 17:25 Order name: O2 Sat Monitoring; Complete Time: 18:13 cp EC:04 Rate is 91 beats/min. Rhythm is regular. [place] interval is normal. QRS interval is normal. cp QT interval is normal. T waves are Inverted in lead aVR. Interpreted by me. Reviewed by me. Administered Medications: 21:00 Drug: MethylPrednisoLONE IVP 125 mg IVP once Route: IVP; Site: right antecubital; pf1 22:52 Follow up: Response: No adverse reaction tl4 21:00 Drug: diphenhydrAMINE IVP 25 mg IVP once Route: IVP; Site: right antecubital; pf1 22:52 Follow up: Response: No adverse reaction tl4 21:00 Drug: Famotidine IVP 20 mg IVP once; dilute with 10 mL 0.9% NaCl; give over 2 minutes pf1 Route: IVP; Site: right antecubital; 22:52 Follow up: Response: No adverse reaction tl4 Disposition Summary: 11/23/23 23:16 Discharge Ordered Notes: Location: Home cp Problem: new cp Symptoms: have improved cp Condition: Stable cp Diagnosis - Enlarged lymph nodes, unspecified - cervical cp - Shortness of breath cp - Infectious mononucleosis, unspecified without complication cp Followup: cp - With: Private Physician - When: 2 - 3 days - Reason: Recheck today's complaints Discharge Instructions: - Discharge Summary Sheet cp - Infectious Mononucleosis cp - Shortness of Breath, Adult cp - Lymphadenopathy cp - Mononucleosis Rapid Test cp Forms: - Medication Reconciliation Form cp - Thank You Letter cp - Antibiotic Education cp - Prescription Opioid Use cp - Patient Portal Instructions cp - Leadership Thank You Letter cp - Work release form tl4 Prescriptions: - albuterol sulfate 90 mcg/actuation Inhalation HFA Aerosol Inhaler - inhale 1 puff INHALATION route every 4 to 6 hours as needed for shortness of cp breath; administer via ventilator; 1 unit; Refills: 0, Product Selection Permitted Addendum: 11/25/2023 14:27 I was immediately available for consultation during this patient's visit. I did not e c2 personally see the patient or discuss the patient with the GERA. . Signatures: Dispatcher [employer] Paz Redding RN RN Zacarias Gracia PA PA cp Finley, Pamala, RN RN pf1 Chaim Jameson MD MD ec2 Og Zhou RN tl4
[2023-11-24 00:26] VITALS: BP 127/84; TEMP 97.8; O2SAT 98
--- NOTE | 2023-11-24 14:08 | EKG ---
Test Date: 2023-11-23 Test Time: 17:57:56 Seo Consultant: TL MEASUREMENT RESULTS: Intervals: Rate: 91 [place]: 154 QRSD: 74 QT: 362 QTc: 445 [place]itt: P: 65 [place]: 154 QRS: 54 T: 51 INTERPRETIVE STATEMENTS: Normal sinus rhythm Cannot rule out Anterior infarct, age undetermined Abnormal ECG Compared to ECG 05/08/2023 21:51:40 Myocardial infarct finding now present Electronically Signed On 11-24-23 14:05:21 CDT by Kenyon Ash
== END ==
LOC: ER 17:14
DX: B27.90 Infectious mononucleosis, unspecified without complication (principal); R06.02 Shortness of breath; Z11.52 Encounter for screening for COVID-19; Z88.0 Allergy status to penicillin; Z88.4 Allergy status to anesthetic agent; Z88.6 Allergy status to analgesic agent
CPT/HCPCS: 93005; 87070; 85025; 81001; 80048; 36415; 83735; 86308; 80076; 87081; 84484; 83880; 87804 ×2; 70491; 71275; 71045; 96375; 96374; 99285; 87811; Q9967; J1200; J2930